=== PATIENT | female | born 1955 | race Caucasian/White ===

== ENCOUNTER 2017-07-07 11:50 | Emergency (ER) | payer MEDICARE, OTHER ==
[~2017-07-07] VITALS: Ht 162.6 cm; Wt 105.0 kg
[~2017-07-07 11:50] MED LIST: ASPI81TA82 PO; EZET10 PO; HYDR-3535 PO; METH750T2 PO; NEUR400C PO; PROC1TAB8 PO; TEMA30CA PO; TIZA2CAP PO; TIZA2TAB PO
[2017-07-07 11:53] VITALS: BP 141/68; PULSE 100; RESP 18; TEMP 98.4; O2SAT 97
[2017-07-07] MEDS ORDERED: MOBI7.5T PO (12:13)
[2017-07-07] MEDS ORDERED: TEMA30CA PO (12:13)
[2017-07-07] MEDS ORDERED: GABA800T PO (12:13)
[2017-07-07] MEDS ORDERED: TIZA2TAB PO (12:13)
[2017-07-07] MEDS ORDERED: PERC10TA27 PO (12:13)
[2017-07-07] MEDS ORDERED: BUTA1CAP8 PO (12:13)
--- NOTE | 2017-07-07 12:43 | PD ---
HPI Chief Complaint: Musculoskeletal Complaint Time Seen by Provider: 12:26 Travel History International Travel<30 days: No Contact w/Intl Traveler<30days: No Traveled to known affect area: No History of Present Illness HPI 61-year-old female presents to emergency department with right knee and hip pain for the last 2 days. States she tripped over an object in the house and the pain has been increasing since. Her knee pain is described as moderate, achy, constant, and occasionally sharp and with movement. Her hip pain is located laterally that increases with movement. States she did not take her pain medications this morning and her pain as a 10 out of 10. Denies numbness, tingling or weakness.Denies fever, chills, chest pain, shortness of breath. She does have chronic pain and takes multiple medications this. She had neck surgery in December for a 'disc problem'. He has been less mobile than normal is not taking a blood thinner. Does not normally use an assistive devices for walking. Patient follows physical therapy and her primary care physician. Denies fever, chills, chest pain, shortness of breath. PFSH Past Medical History Arthritis: Yes Blood Disorders: No Depression: Yes Cancer: No Cardiovascular Problems: Yes (MURMUR) High Cholesterol: Yes Diminished Hearing: No Endocrine: No Gastrointestinal Disorders: Yes Genitourinary: No Hypertension: Yes Immune Disorder: No Musculoskeletal: Yes (CHRONIC BACK AND NECK PAIN) Neurologic: Yes Psychiatric: No Respiratory: No Immunizations Current: Yes Migraines: Yes ?: Not Menopausal: Yes Tubal Ligation: Yes Past Surgical History Abdominal Surgery: Yes (APPY) Appendectomy: Yes Gynecologic Surgery: Yes (TUBAL LIGATION) Oral Surgery: Yes (TONSILLECTOMY) Tonsillectomy: Yes Other Surgery: Yes Social History Alcohol Use: Yes (OCC) Tobacco Use: No Substance Use: No Allergies-Medications (Allergen,Severity, Reaction): Coded Allergies: celecoxib (Unverified Allergy, Severe, BLEEDING, 07/07/17) ALL NSAIDS onion (Unverified Allergy, Severe, 07/07/17) Uncoded Allergies: ANTDEPRESSANTS (Adverse Reaction, Severe, DEPRESSION., 10/18/15) Reported Meds & Prescriptions Reported Meds & Active Scripts Active Reported Zebutal (Oymlbynmkc-Hphddvugtmdkk-Ybectdtk) 50-325-40 Mg Cap 1-2 Cap PO Q4HR PRN Do not exceed 6 capsules/day. Mobic (Meloxicam) 7.5 Mg Tab 7.5 Mg PO BID Percocet (Oxycodone-Acetaminophen) 10-325 mg Tab 1 Tab PO Q6H PRN Tizanidine (Tizanidine HCl) 2 Mg Tab 2 Mg PO QID Temazepam 30 Mg Cap 40 Mg PO HS PRN Gabapentin 800 Mg Tab 800 Mg PO BID Review of Systems Except as stated in HPI: all other systems reviewed are Neg Physical Exam Narrative GENERAL: Well-nourished, well-developed patient obese SKIN: Focused skin assessment warm/dry. No ecchymosis, erythema HEAD: Normocephalic. EYES: No scleral icterus. No injection or drainage. NECK: Supple, trachea midline. No JVD or lymphadenopathy. CARDIOVASCULAR: Regular rate and rhythm without murmurs, gallops, or rubs. RESPIRATORY: Breath sounds equal bilaterally. No accessory muscle use. GASTROINTESTINAL: Abdomen soft, non-tender, nondistended. Right knee- edematous without erythema or ecchymosis., No crepitus or deformities Right hip- no crepitus, deformities. Pain with Vega, limited range of motion secondary to pain Right calf- tenderness to palpation of the mid calf not involving the Achilles, no ecchymosis, edema or erythema MUSCULOSKELETAL: No cyanosis, or edema. Pelvis stable. BACK: Nontender without obvious deformity. No CVA tenderness. Data Data Last Documented VS Vital Signs Date Time Temp Pulse Resp B/P (MAP) Pulse Ox O2 Delivery O2 Flow Rate FiO2 07/07/17 13:54 18 07/07/17 12:48 82 95 Room Air 07/07/17 11:53 98.4 141/68 (92) Orders Orders Knee, Complete (4vws) (07/07/17 ) Us Leg Venous Doppler (07/07/17 ) Morphine Inj (Morphine Inj) (07/07/17 12:45) Hip, Lat Only W Ap Pelvis (07/07/17 ) Ed Discharge Order (07/07/17 14:03) MDM Medical Decision Making Medical Screen Exam Complete: Yes Emergency Medical Condition: Yes Differential Diagnosis Right knee sprain versus strain versus fracture Right hip sprain versus strain versus fracture Right calf radicular pain versus contusion versus radiating pain Narrative Course 61-year-old female presents to the emergency department for pain in her right knee right hip and right calf. Patient does have chronic pain however states that this pain is worse than it has been after a trip and near fall. She follows physical therapy and primary care for her chronic pain. She has been less mobile than usual. She had neck surgery in December for a 'disc problem'. She is on hydrocodone 10-325 daily for her chronic pain but states this has not decreased her pain. Physical exam demonstrates decreased range of motion of her right hip associated with pain. Right knee edematous with full range of motion. Right calf mild tenderness to palpation. I have a low suspicion of acute processes however, because of patient's increased pain secondary to a near fall, will order further tests. Doppler ultrasound ordered to rule out DVT. Although my suspicion was low, pt is a poor historian and cannot fully describe her pain or chronic medical conditions to rule this possibility out. She has been less mobile and had surgery within the last 6 months. US Doppler demonstrates no evidence of DVT. Knee and hip xrays without acute process. Patient discharged and advised to follow-up with her primary care and physical therapist further treatment and evaluation. Pt to continue home medications. Diagnosis Primary Impression: Knee sprain Qualified Codes: S83.91XA - Sprain of unspecified site of right knee, initial encounter Additional Impression: Hip sprain Qualified Codes: S73.101A - Unspecified sprain of right hip, initial encounter Referrals: Primary Care Physician Additional Instructions: Follow-up with her primary care physician for further treatment and evaluation. Continue home medications for your pain. Recommend following with orthopedics for pain Disposition: 01 DISCHARGE HOME Condition: Stable Phoebe Babin Jul 07, 2017 12:43
[2017-07-07] MEDS ORDERED: MORPHINE SULFATE 4 MG/ML INJ IM ONE (12:45)
[2017-07-07 12:48] VITALS: PULSE 82; RESP 18; O2SAT 95
--- NOTE | 2017-07-07 13:40 | RADRPT ---
EXAM DATE/TIME: 07/07/2017 13:12 [facility] COMPARISON: No previous studies available for comparison. INDICATIONS : Right hip area pain, no known injury MEDICAL HISTORY : Arthritis. SURGICAL HISTORY : spinal ENCOUNTER: Initial ACUITY: 3 days PAIN SCORE: 10/10 LOCATION: Right Hip FINDINGS: An acute fracture is not seen. The hip joints are normally aligned. There is some hypertrophic change adjacent to the greater trochanters bilaterally. The pubic symphysis and sacroiliac joints are align ed. There are transpedicular screws seen at the left L5 and S1 levels with a stabilization device at the L5-S1 disc level. The bones appear osteopenic. CONCLUSION: No acute abnormality seen. Linden Moctezuma MD on July 07, 2017 at 13:36 Board Certified Radiologist. This report was verified electronically.
--- NOTE | 2017-07-07 13:43 | RADRPT ---
EXAM DATE/TIME: 07/07/2017 13:16 [facility] COMPARISON: KNEE RIGHT COMPLETE (4VWS), October 18, 2015, 13:30. INDICATIONS : Right knee pain, no known injury MEDICAL HISTORY : Arthritis. SURGICAL HISTORY : Spinal ENCOUNTER: Initial ACUITY: 3 days PAIN SCORE: 10/10 LOCATION: Right Knee FINDINGS: There is joint space narrowing seen medially. Spurs are seen at the medial and lateral tibial plateau and at the patellofemoral region. No effusion is seen. The bones appear osteopenic. No fracture seen . CONCLUSION: Degenerative change. This appears unchanged from the prior exam. Linden Moctezuma MD on July 07, 2017 at 13:39 Board Certified Radiologist. This report was verified electronically.
[2017-07-07 13:54] VITALS: RESP 18
--- NOTE | 2017-07-07 13:55 | RADRPT ---
EXAM DATE/TIME: 07/07/2017 13:33 [facility] COMPARISON: No previous studies available for comparison. INDICATIONS : Right leg pain. MEDICAL HISTORY : Hypertension. Hypercholesterolemia. Arthritis. SURGICAL HISTORY : Tonsillectomy. Tubal ligation. Appendectomy. L5-S1 TLIF ENCOUNTER: Initial ACUITY: 2 day PAIN SCORE: 5/10 LOCATION: Right leg. TECHNIQUE: Venous ultrasound of the leg was performed from the inguinal ligament to the proximal calf. Real-ivis e, color Doppler and spectral tracing, compression and augmentation techniques were used. FINDINGS: There is normal compressibility of the deep venous system from the inguinal region to the proximal ca lf. No echogenic clot is seen in the lumen of the common femoral, femoral, popliteal, and posterior tibial veins. There is a normal response of the venous system to proximal and distal augmentation an d respiration. CONCLUSION: Normal examination. Anand Padgett Jr., MD on July 07, 2017 at 13:53 Board Certified Radiologist. This report was verified electronically.
== END 2017-07-07 14:12 | disposition home or self-care (01) ==
LOC: PHEFT 11:50
DX: S83.91XA Sprain of unspecified site of right knee, initial encounter (principal); S73.101A Unspecified sprain of right hip, initial encounter; M79.604 Pain in right leg; W01.0XXA Fall on same level from slipping, tripping and stumbling without subsequent striking against object, initial encounter; Y92.009 Unspecified place in unspecified non-institutional (private) residence as the place of occurrence of the external cause
CPT/HCPCS: 73501; 73564; 93971; 96372; 99285; J2270

== ENCOUNTER 2017-07-09 10:11 | Emergency (ER) | payer MEDICARE, OTHER ==
[~2017-07-09] VITALS: Ht 162.6 cm; Wt 105.5 kg
[~2017-07-09 10:11] MED LIST changes: -ASPI81TA82 PO; +BUTA1CAP8 PO; -EZET10 PO; +GABA800T PO; -HYDR-3535 PO; -METH750T2 PO; +MOBI7.5T PO; -NEUR400C PO; +PERC10TA27 PO; -PROC1TAB8 PO; -TIZA2CAP PO
[2017-07-09 10:15] VITALS: BP 109/55; PULSE 92; RESP 15; TEMP 97.6; O2SAT 94
[2017-07-09] MEDS ORDERED: MORPHINE SULFATE 4 MG/ML INJ IM ONE (11:30)
[2017-07-09] MEDS ORDERED: PROMETHAZINE INJ 25 MG/ML VIAL IM ONE (11:30)
--- NOTE | 2017-07-09 11:57 | PD ---
HPI . Pain Chief Complaint: Pain: Acute or Chronic Time Seen by Provider: 11:04 Travel History International Travel<30 days: No Contact w/Intl Traveler<30days: No Traveled to known affect area: No History of Present Illness HPI 61-year-old female presents emergency department for evaluation of right hip, right knee, right ankle, back, neck and shoulder pain. Patient was seen here in our facility a couple days ago with right knee and hip pain. X-rays were obtained and were unremarkable. Patient has a history of fibromyalgia and is in need of surgery on 2 disks in her spine and surgery on her shoulder. Patient is obese and are ready and physical therapy. Patient states her pain is so severe she is unable to go to physical therapy. Patient has early taken in oxycodone, Zanaflex and lorazepam this morning. Neurovascularly the patient is intact. The patient is ambulatory without a walker or cane but she would like her. There is no signs of trauma such as obvious deformity, ecchymosis, erythema or cyanosis. Patient denies any new trauma or injury but really would like more significant pain control. PFSH Past Medical History Arthritis: Yes Blood Disorders: No Depression: Yes Cancer: No Cardiovascular Problems: Yes (MURMUR) High Cholesterol: Yes Diminished Hearing: No Endocrine: No Gastrointestinal Disorders: Yes Genitourinary: No Hypertension: Yes Immune Disorder: No Implanted Vascular Access Dvce: No Musculoskeletal: Yes (CHRONIC BACK AND NECK PAIN) Neurologic: Yes Psychiatric: No Respiratory: No Immunizations Current: Yes Migraines: Yes Menopausal: Yes Tubal Ligation: Yes Past Surgical History Abdominal Surgery: Yes (APPY) Appendectomy: Yes Gynecologic Surgery: Yes (TUBAL LIGATION) Oral Surgery: Yes (TONSILLECTOMY) Tonsillectomy: Yes Other Surgery: Yes Family History Family Myocardial Infarction: Yes Social History Alcohol Use: Yes (OCC) Tobacco Use: No Substance Use: No Allergies-Medications (Allergen,Severity, Reaction): Coded Allergies: celecoxib (Unverified Allergy, Severe, BLEEDING, 07/09/17) ALL NSAIDS onion (Unverified Allergy, Severe, 07/09/17) Uncoded Allergies: ANTDEPRESSANTS (Adverse Reaction, Severe, DEPRESSION., 10/18/15) Reported Meds & Prescriptions Reported Meds & Active Scripts Active Reported Zebutal (Tfqqglvkpn-Hcyjeimqpuyro-Ybmkeqla) 50-325-40 Mg Cap 1-2 Cap PO Q4HR PRN Do not exceed 6 capsules/day. Mobic (Meloxicam) 7.5 Mg Tab 7.5 Mg PO BID Percocet (Oxycodone-Acetaminophen) 10-325 mg Tab 1 Tab PO Q6H PRN Tizanidine (Tizanidine HCl) 2 Mg Tab 2 Mg PO QID Temazepam 30 Mg Cap 40 Mg PO HS PRN Gabapentin 800 Mg Tab 800 Mg PO BID Review of Systems Except as stated in HPI: all other systems reviewed are Neg Physical Exam Narrative GENERAL: Well-nourished, well-developed obese 61-year-old female patient that is tearful and anxious. SKIN: Focused skin assessment warm/dry. HEAD: Normocephalic. Atraumatic. EYES: No scleral icterus. No injection or drainage. NECK: Supple, trachea midline. No JVD or lymphadenopathy. CARDIOVASCULAR: Regular rate and rhythm without murmurs, gallops, or rubs. Pedal pulses 2+ bilaterally. RESPIRATORY: Breath sounds equal bilaterally. No accessory muscle use. GASTROINTESTINAL: Abdomen soft, non-tender, nondistended. MUSCULOSKELETAL: Coordinated, purposeful movement noted in all extremities No obvious deformity, ecchymosis, cyanosis, or edema. BACK: No obvious deformity, ecchymosis, erythema or cyanosis. No CVA tenderness. Data Data Last Documented VS Vital Signs Date Time Temp Pulse Resp B/P (MAP) Pulse Ox O2 Delivery O2 Flow Rate FiO2 07/09/17 10:15 97.6 92 15 109/55 (73) 94 Orders Orders Morphine Inj (Morphine Inj) (07/09/17 11:30) Promethazine Inj (Phenergan Inj) (07/09/17 11:30) [facility] Medical Decision Making Medical Screen Exam Complete: Yes Emergency Medical Condition: Yes Differential Diagnosis Differential diagnoses include but are not limited to fibromyalgia exacerbation , chronic pain syndrome, muscle sprain, strain Narrative Course 61-year-old female presents emergency department for evaluation of pain. Patient seen in our facility a couple days ago for evaluation of right hip and right knee pain. X-rays were performed and were unremarkable. Patient has a pain management physician that she says doesn't get her pain under control. Patient is already in physical therapy. Patient states the pain is so severe she can't walk even though she was ambulatory from triage. Patient tearful and anxious. Neurovascularly all extremities are intact. Patient denies any fevers , chills, shortness of breath or chest pain. Patient has medical history of fibromyalgia. Patient has already taken her oxycodone, Zanaflex and lorazepam this morning and states she still has tremendous amount of pain. Patient case discussed with my attending, Dr. Marinelli and an IM injection of morphine and Toradol will be ordered in our facility and the patient will be discharged home with instructions to follow-up with her primary care and pain management physician. Diagnosis Primary Impression: Pain Referrals: Pain Management Primary Care Physician Patient Instructions: Chronic Pain (ED), General Instructions Additional Instructions: Please return to emergency department if your symptoms return or worsen. Follow up with your primary care provider and/or pain management physician. Take medications as prescribed. May use ice and heating packs to painful areas. Disposition: 01 DISCHARGE HOME Condition: Stable EffieApril verduzco Chacha PELLETIER Jul 09, 2017 11:57
[2017-07-09 12:25] VITALS: BP 146/58
== END 2017-07-09 12:26 | disposition home or self-care (01) ==
LOC: PHEFT 10:11
DX: G89.29 Other chronic pain (principal)
CPT/HCPCS: 96372; 99284; J2270; J2550

== ENCOUNTER 2018-02-28 12:32 | Emergency (ER) | payer MEDICARE, OTHER ==
[2018-02-28 12:35] VITALS: PULSE 98; RESP 20; TEMP 97.4; O2SAT 96
[2018-02-28] MEDS ORDERED: DOCU50CA5 (12:47)
[2018-02-28] MEDS ORDERED: ZOLO25TA PO (12:47)
--- NOTE | 2018-02-28 13:34 | PD ---
HPI Chief Complaint: Complaint Time Seen by Provider: 13:06 Travel History International Travel<30 days: No Contact w/Intl Traveler<30days: No Traveled to known affect area: No History of Present Illness HPI 62-year-old female complains of low abdominal pain, low back pain, hematuria. Patient states that his symptoms started last night. Patient denies any headache. Patient denies any chest pain or shortness of breath. Patient states that she has aching pain localized to lower abdomen pelvic area and low back area. Patient denies any fever chills. Patient denies any dysuria frequency. Patient noticed intermittent hematuria since last night. Patient denies any nausea vomiting diarrhea. Patient has history of UTI in the past with the same symptoms. Patient denies any vaginal discharge or bleeding. Patient has history of osteoarthritis, hyperlipidemia, depression, hypertension , migraine, chronic neck and back pain. Patient denies any history kidney stone in the past. PFSH Past Medical History Arthritis: Yes Blood Disorders: No Depression: Yes Cancer: No Cardiovascular Problems: Yes (MURMUR) High Cholesterol: Yes Diminished Hearing: No Endocrine: No Gastrointestinal Disorders: Yes Genitourinary: No Hypertension: Yes Immune Disorder: No Implanted Vascular Access Dvce: No Musculoskeletal: Yes (CHRONIC BACK AND NECK PAIN) Neurologic: Yes Psychiatric: No Respiratory: No Immunizations Current: Yes Migraines: Yes ?: Not Menopausal: Yes Tubal Ligation: Yes Past Surgical History Abdominal Surgery: Yes (APPY) Appendectomy: Yes Gynecologic Surgery: Yes (TUBAL LIGATION) Oral Surgery: Yes (TONSILLECTOMY) Tonsillectomy: Yes Other Surgery: Yes Family History Family Myocardial Infarction: Yes Social History Alcohol Use: Yes (OCC) Tobacco Use: No Substance Use: No Allergies-Medications (Allergen,Severity, Reaction): Coded Allergies: celecoxib (Verified Allergy, Severe, BLEEDING, 02/28/18) ALL NSAIDS onion (Verified Allergy, Severe, 02/28/18) Uncoded Allergies: ANTDEPRESSANTS (Adverse Reaction, Severe, DEPRESSION., 10/18/15) Reported Meds & Prescriptions Reported Meds & Active Scripts Active Reported Stool Softener (Docusate Sodium) 50 Mg Capsule Unknown Dose Zoloft (Sertraline HCl) 25 Mg Tab Unknown Dose PO DAILY Percocet (Oxycodone-Acetaminophen) 10-325 mg Tab 1 Tab PO Q6H PRN Tizanidine (Tizanidine HCl) 2 Mg Tab 2 Mg PO QID Temazepam 30 Mg Cap 40 Mg PO HS PRN Gabapentin 800 Mg Tab 800 Mg PO BID Review of Systems General / Constitutional: No: Fever Eyes: No: Visual changes HENT: No: Headaches Cardiovascular: No: Chest Pain or Discomfort Respiratory: No: Shortness of Breath Gastrointestinal: Positive: Abdominal Pain Genitourinary: Positive: Hematuria, No: Dysuria Musculoskeletal: No: Pain Skin: No Rash Neurologic: No: Weakness Psychiatric: No: Depression Endocrine: No: Polydipsia Hematologic/Lymphatic: No: Easy Bruising Physical Exam Narrative GENERAL: Well-nourished, well-developed patient. SKIN: Focused skin assessment warm/dry. HEAD: Normocephalic. EYES: No scleral icterus. No injection or drainage. NECK: Supple, trachea midline. No JVD or lymphadenopathy. CARDIOVASCULAR: Regular rate and rhythm without murmurs, gallops, or rubs. RESPIRATORY: Breath sounds equal bilaterally. No accessory muscle use. GASTROINTESTINAL: Abdomen soft, nondistended. Patient has mild tenderness on palpation lower abdominal area, no rebound tenderness. No mass. MUSCULOSKELETAL: No cyanosis, or edema. BACK: Patient has mild tenderness in palpation lower lumbar area, without obvious deformity. No CVA tenderness. Neurologic exam normal. Data Data Last Documented VS Vital Signs Date Time Temp Pulse Resp B/P (MAP) Pulse Ox O2 Delivery O2 Flow Rate FiO2 02/28/18 12:35 97.4 98 20 96 Orders Orders Urinalysis - C+S If Indicated (02/28/18 13:14) Sulfamet-Trimeth Ds 800-160 Mg (Bactrim (02/28/18 15:30) Labs Laboratory Tests Test 02/28/18 14:00 Urine Collection Type CLEAN CATCH Urine Color YELLOW Urine Turbidity CLEAR Urine pH 6.0 Urine Specific [place] 1.010 Urine Protein NEG mg/dL Urine Glucose (UA) NEG mg/dL Urine Ketones NEG mg/dL Urine Occult Blood LARGE Urine Nitrite NEG Urine Bilirubin NEG Urine Urobilinogen 0.2 MG/DL Urine Leukocyte Esterase SMALL Urine RBC 10-14 /hpf Urine WBC 3-5 /hpf Urine Squamous Epithelial Cells 6-8 /hpf Urine Bacteria OCC /hpf Microscopic Urinalysis Comment CULT NOT INDICATED MDM Medical Decision Making Medical Screen Exam Complete: Yes Emergency Medical Condition: Yes Interpretation(s) 1518 p.m. UA positive for RBC and bacteria. Differential Diagnosis Differential diagnosis including hemorrhagic cystitis, urethritis, nephrolithiasis, urinary tract lesion. Narrative Course 62-year-old female with low abdominal pain, low back pain, hematuria. Diagnosis Primary Impression: Hemorrhagic cystitis Patient Instructions: General Instructions Additional Instructions: Take antibiotic as directed. Follow-up with personal physician or urologist for complete clearance of hematuria. Advised patient to have CT scan abdomen pelvis done if persistent hematuria. Med/Other Pt SpecificInfo: Prescription(s) given Scripts Sulfamethoxazole-Trimethoprim (Bactrim DS) 800-160 Mg Tab 1 TAB PO BID for Infection, #14 TAB 0 Refills Prov: Curry Shepherd MD 02/28/18 Disposition: 01 DISCHARGE HOME Condition: Stable Curry Shepherd MD Feb 28, 2018 13:34
[2018-02-28 14:10] LABS: BILIRUBIN, URINE NEG (NEG); BLOOD, URINE LARGE (NEG); GLUCOSE,URINE NEG (NEG); KETONE, URINE NEG (NEG); NITRITE,URINE NEG (NEG); URINE COLOR YELLOW (YELLW/STRAW); URINE LEUKOCYTE ESTERASE SMALL (NEG)
[2018-02-28 14:22] LABS: BACTERIA, URINE OCC /hpf
[2018-02-28] MEDS ORDERED: BACT800T5 PO (15:20)
[2018-02-28] MEDS ORDERED: SULFAMETHOXAZOLE-TRIMETHOPRIM DS 800-160 MG TAB PO ONE (15:30)
== END 2018-02-28 15:30 | disposition home or self-care (01) ==
LOC: PHED 12:32
DX: N30.91 Cystitis, unspecified with hematuria (principal); M19.90 Unspecified osteoarthritis, unspecified site; E78.5 Hyperlipidemia, unspecified; F32.9 Major depressive disorder, single episode, unspecified; I10 Essential (primary) hypertension; G89.29 Other chronic pain; M54.2 Cervicalgia; M54.9 Dorsalgia, unspecified
CPT/HCPCS: 81001; 99283